=== PATIENT | male | born 1955 ===

== ENCOUNTER 2024-02-15 09:30 | Day surgery (SDC) | payer MEDICARE ==
[~2024-02-15] VITALS: Ht 195.6 cm; Wt 100.4 kg
[2024-02-15] MEDS ORDERED: NS 50 ML IV ONE (09:48)
[2024-02-15] MEDS ORDERED: Lactated Ringer's 1,000 ML IV ONE ×2 (09:48→10:13)
[2024-02-15] MEDS ORDERED: CeFAZolin Sodium 2,000 MG VIAL ONE (09:48)
[2024-02-15] MEDS ORDERED: TADALAFIL10 MG PO (09:51)
[2024-02-15] MEDS ORDERED: Dexamethasone Sodium Phosphate 4 MG/ML 5ML VIAL ONE (10:40)
[2024-02-15] MEDS ORDERED: propofoL 40 ML IV ONE (10:43)
[2024-02-15] MEDS ORDERED: FentaNYL Citrate 50 MCG/ML 2 ML Injection ONE (11:14)
[2024-02-15] MEDS ORDERED: Triamcinolone Inj Susp 10 MG / ML 5ML Vial ONE (11:19)
[2024-02-15] MEDS ORDERED: Dexamethasone Sod Phos 10 MG/ML 1ML VIAL ONE (11:26)
[2024-02-15] MEDS ORDERED: Ropivacaine 0.5% HCl/Pf 5 MG/ML 20ML VIAL INJ ONE ×2 (11:33)
[2024-02-15] MEDS ORDERED: Lidocaine HCl 1% 20 ML MDV INJ ONE (11:33)
[2024-02-15] MEDS ORDERED: Ibuprofen 600 MG Tab ONE (12:38)
--- NOTE | 2024-02-15 13:08 | NUR ---
02/15/24 Srinath Noble PT PROVIDED IBPROFEN PRIOR TO DISCHARGE PER DRS ORDERS. DENIED PAIN BY TIME OF DISCHARGE. TOLERATING FOOD AND FLUIDS.
== END 2024-02-15 12:55 | disposition home or self-care (01) ==
LOC: ORSCSDS 09:30
PROVIDERS: Podiatrist
PROC: 01BG0ZZ Excision of Tibial Nerve, Open Approach (ICD-10-PCS; principal; 2024-02-15 11:00)
DX: G57.61 Lesion of plantar nerve, right lower limb (principal); I10 Essential (primary) hypertension; Z87.891 Personal history of nicotine dependence; Z79.899 Other long term (current) drug therapy
CPT/HCPCS: A9270; J0690; J1100; J2704; J2795; J3010; J3301; J7120